=== PATIENT | male | born 1990 | race Caucasian/White ===

== ENCOUNTER 2018-12-29 18:15 | Emergency (ER) | payer OTHER ==
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
[2018-12-29 19:22] VITALS: BP 164/89
== END 2018-12-29 19:21 | disposition home or self-care (01) ==
DX: S63.502A Unspecified sprain of left wrist, initial encounter (principal); S60.222A Contusion of left hand, initial encounter; V19.9XXA Pedal cyclist (driver) (passenger) injured in unspecified traffic accident, initial encounter; Y99.9 Unspecified external cause status
CPT/HCPCS: L3807